=== PATIENT | female | born 1985 | race Caucasian/White ===

== ENCOUNTER 2017-05-06 16:11 | Emergency (ER) | payer SELFPAY ==
[2017-05-06] MEDS ORDERED: ONDANSETRON *ODT* 4 MG TABLET ONE (16:23)
[2017-05-06] MEDS ORDERED: SODIUM CHLORIDE 1,000 ML IV STA (16:28)
[2017-05-06] MEDS ORDERED: morphine SULFATE 4 MG/ML VIAL IVPUSH ONE (16:28)
[2017-05-06 16:32] VITALS: BMI 20.9
[2017-05-06] MEDS ORDERED: ONDANSETRON *ODT* 4 MG TABLET SL ONE (16:36)
[2017-05-06] MEDS ORDERED: ONDANSETRON 4 MG/2 ML VIAL IVPB ONE (16:45)
[2017-05-06] MEDS ORDERED: ONDANSETRON 4 MG/2 ML VIAL ONE (16:51)
[2017-05-06] MEDS ORDERED: morphine CARPU-JECT 10 MG/1 ML DISP.SYRIN ONE (16:51)
[2017-05-06 16:52] LABS: BASO % 0.5 % (0-2.0); EOS % 0.1 % (0-4.5); HEMATOCRIT 42.5 % (32.4-45.2); HEMOGLOBIN 14.5 GM/dL (10.7-15.3); LYMPH % 6.7 % (8-40); MCH 29.8 pg (25.7-33.7); MEAN CELL VOLUME 87.7 fl (80-96); MEAN PLT VOLUME 7.9 fl (7.5-11.1); MONO % 2.8 % (3.8-10.2); NEUT % 89.9 % (42.8-82.8); PLATELET COUNT 227 K/MM3 (134-434); RBC 4.85 M/mm3 (3.60-5.2); RDW 13.3 % (11.6-15.6); WHITE BLOOD COUNT 9.4 K/mm3 (4.0-10.0)
[2017-05-06] MEDS ORDERED: FAMOTIDINE IV 20 MG/12 ML VIAL IVPUSH ONE (16:54)
[2017-05-06] MEDS ORDERED: ACETAMINOPHEN 1000 MG/100 ML VIAL (NON FORMULARY) IVPB ONE (16:54)
--- NOTE | 2017-05-06 17:03 | PDOC ---
History of Present Illness - General History Source: Patient Exam Limitations: No Limitations - History of Present Illness Initial Comments: 05/06/17 18:04 The patient is a 32 year old female, with no significant past medical history, who presents to the emergency department with, one day of multiple episodes of emesis. The patient reports going out for [place] food yesterday. Today she reports nausea accompanied by 15 episodes of emesis. Secondary to her symptoms she reports abdominal discomfort. She reports to have just finished her menses. She denies recent fevers, chills, headache or dizziness. She denies recent diarrhea or constipation. She denies recent dysuria, frequency, urgency or hematuria. She denies recent chest pain or shortness of breath. Allergies: NKA Past surgical history: None reported. <Holley Her - Last Filed: 05/06/17 19:13> - General History Source: Patient Exam Limitations: No Limitations <Raf Vega - Last Filed: 05/06/17 19:16> <Cindy Casiano - Last Filed: 05/07/17 04:14> - General Chief Complaint: Nausea/Vomiting Stated Complaint: Nausea/Vomiting Time Seen by Provider: 05/06/17 16:25 Past History <Holley Her - Last Filed: 05/06/17 19:13> - Past Medical History COPD: No Other medical history: denies - Suicide/Smoking/Psychosocial Hx Smoking History: Never smoked Have you smoked in the past 12 months: No Information on smoking cessation initiated: No Hx Alcohol Use: No Drug/Substance Use Hx: Yes Substance Use Type: Marijuana <Raf Vega - Last Filed: 05/06/17 19:16> <Cindy Casiano - Last Filed: 05/07/17 04:14> - Past Medical History Allergies/Adverse Reactions: Allergies Allergy/AdvReac Type Severity Reaction Status Date / Time No Known Allergies Allergy Verified 05/06/17 16:35 Home Medications: Ambulatory Orders Ondansetron HCl [Zofran] 4 mg PO TID #15 tablet 05/06/17 Review of Systems - Review of Systems Able to Perform ROS?: Yes Comments:: 05/06/17 18:05 GENERAL/CONSTITUTIONAL: No fever or chills. No weakness. HEAD, EYES, EARS, NOSE AND THROAT: No change in vision. No ear pain or discharge. No sore throat. CARDIOVASCULAR: No chest pain or shortness of breath. RESPIRATORY: No cough, wheezing, or hemoptysis. GASTROINTESTINAL: +Nausea. +Emesis. +Abdominal discomfort. No diarrhea or constipation. GENITOURINARY: No dysuria, frequency, or change in urination. MUSCULOSKELETAL: No joint or muscle swelling or pain. No neck or back pain. SKIN: No rash NEUROLOGIC: No headache, vertigo, loss of consciousness, or change in strength/ sensation. ENDOCRINE: No increased thirst. No abnormal weight change. HEMATOLOGIC/LYMPHATIC: No anemia, easy bleeding, or history of blood clots. ALLERGIC/IMMUNOLOGIC: No hives or skin allergy. All Other Systems: Reviewed and Negative <Holley Her - Last Filed: 05/06/17 19:13> *Physical Exam - Vital Signs Last Vital Signs Temp Pulse Resp BP Pulse Ox 97.6 F 80 22 128/80 100 05/06/17 16:21 05/06/17 16:21 05/06/17 16:21 05/06/17 16:21 05/06/17 16:21 - Physical Exam Comments: 05/06/17 18:06 GENERAL: +Uncomfortable appearing. Awake, alert, and fully oriented HEAD: No signs of trauma EYES: PERRLA, EOMI, sclera anicteric, conjunctiva clear ENT: Auricles normal inspection, hearing grossly normal, nares patent, oropharynx clear without exudates. Moist mucosa NECK: Normal ROM, supple, no lymphadenopathy, JVD, or masses LUNGS: Breath sounds equal, clear to auscultation bilaterally. No wheezes, and no crackles HEART: Regular rate and rhythm, normal S1 and S2, no murmurs, rubs or gallops ABDOMEN: +Diffuse abdominal tenderness. No CVA tenderness. Soft, normoactive bowel sounds. No guarding, no rebound. No masses EXTREMITIES: Normal range of motion, no edema. No clubbing or cyanosis. No cords, erythema, or tenderness NEUROLOGICAL: Cranial nerves II through XII grossly intact. Normal speech, normal gait SKIN: Warm, Dry, normal turgor, no rashes or lesions noted. <Holley Her - Last Filed: 05/06/17 19:13> - Vital Signs Last Vital Signs Temp Pulse Resp BP Pulse Ox 97.6 F 80 22 128/80 100 05/06/17 16:21 05/06/17 16:21 05/06/17 16:21 05/06/17 16:21 05/06/17 16:21 <Raf Vega - Last Filed: 05/06/17 19:16> - Vital Signs Last Vital Signs Temp Pulse Resp BP Pulse Ox 98.1 F 89 18 102/66 98 05/06/17 19:29 05/06/17 19:29 05/06/17 19:29 05/06/17 19:29 05/06/17 19:29 <Cindy Casiano - Last Filed: 05/07/17 04:14> ED Treatment Course - LABORATORY CBC & Chemistry Diagram: 05/06/17 16:46 05/06/17 16:46 - ADDITIONAL ORDERS Additional order review: Laboratory Results 05/06/17 05/06/17 16:46 16:46 Sodium 141 Potassium 3.4 L Chloride 107 Carbon Dioxide 21 Anion Gap 13 BUN 12 Creatinine 0.9 Creat Clearance w eGFR > 60 Random Glucose 100 Calcium 8.9 Total Bilirubin 0.8 AST 14 L ALT 21 Alkaline Phosphatase 46 Total Protein 7.9 Albumin 4.5 Lipase 112 Serum , Qual Negative 05/06/17 16:46 RBC 4.85 MCV 87.7 MCHC 34.0 RDW 13.3 MPV 7.9 Neutrophils % 89.9 H Lymphocytes % 6.7 L Monocytes % 2.8 L Eosinophils % 0.1 Basophils % 0.5 - Medications Given in the ED: ED Medications Discontinued Medications Generic Name Dose Route Start Last Admin Trade Name José PRN Reason Stop Dose Admin Acetaminophen 1,000 mg 05/06/17 16:54 05/06/17 17:32 Ofirmev Injection - IVPB 05/06/17 16:55 Not Given ONCE ONE Hydromorphone HCl 0.5 mg 05/06/17 17:06 05/06/17 17:13 Dilaudid Injection - IVPB 05/06/17 17:07 0.5 mg ONCE ONE Administration Sodium Chloride 1,000 mls @ 1,000 mls/hr 05/06/17 16:28 05/06/17 16:41 Normal Saline - IV 05/06/17 17:27 1,000 mls/hr ASDIR STA Administration Famotidine 20 mg in 12 mls @ 144 mls/hr 05/06/17 16:54 05/06/17 17:26 Pepcid 20 Mg/12 Ml Push IVPUSH 05/06/17 16:58 144 mls/hr ONCE ONE Administration Morphine Sulfate 4 mg 05/06/17 16:28 05/06/17 17:05 Morphine Sulfate IVPUSH 05/06/17 16:29 4 mg ONCE ONE Administration Ondansetron HCl 4 mg 05/06/17 16:45 05/06/17 17:13 Zofran Injection IVPB 05/06/17 16:46 4 mg ONCE ONE Administration Ondansetron HCl 8 mg 05/06/17 16:36 05/06/17 16:42 Zofran Odt - SL 05/06/17 16:37 4 mg ONCE ONE Administration <Holley Her - Last Filed: 05/06/17 19:13> - LABORATORY CBC & Chemistry Diagram: 05/06/17 16:46 05/06/17 16:46 - ADDITIONAL ORDERS Additional order review: 05/06/17 16:46 RBC 4.85 MCV 87.7 MCHC 34.0 RDW 13.3 MPV 7.9 Neutrophils % 89.9 H Lymphocytes % 6.7 L Monocytes % 2.8 L Eosinophils % 0.1 Basophils % 0.5 - Medications Given in the ED: ED Medications Discontinued Medications Generic Name Dose Route Start Last Admin Trade Name Freq PRN Reason Stop Dose Admin Ondansetron HCl 8 mg 05/06/17 16:36 05/06/17 16:42 Zofran Odt - SL 05/06/17 16:37 4 mg ONCE ONE Administration <Raf Vega - Last Filed: 05/06/17 19:16> - LABORATORY CBC & Chemistry Diagram: 05/06/17 16:46 05/06/17 16:46 - ADDITIONAL ORDERS Additional order review: Laboratory Results 05/06/17 05/06/17 05/06/17 16:46 16:46 16:46 Sodium 141 Potassium 3.4 L Chloride 107 Carbon Dioxide 21 Anion Gap 13 BUN 12 Creatinine 0.9 Creat Clearance w eGFR > 60 Random Glucose 100 Calcium 8.9 Total Bilirubin 0.8 AST 14 L ALT 21 Alkaline Phosphatase 46 Total Protein 7.9 Albumin 4.5 Lipase 112 Serum , Qual Urine Color Ltyellow Urine Appearance Clear Urine pH 8.0 Ur Specific Thorpe 1.036 H Urine Protein Negative Urine Glucose (UA) Negative Urine Ketones 2+ H Urine Blood 2+ H Urine Nitrite Negative Urine Bilirubin Negative Urine Urobilinogen Negative Ur Leukocyte Esterase Negative Urine WBC (Auto) <1 Urine RBC (Auto) 2 Ur Epithelial Cells Rare Urine Mucus Rare Opiates Screen Positive Methadone Screen Negative Barbiturate Screen Negative Phencyclidine Screen Negative Ur Amphetamines Screen Negative MDMA (Ecstasy) Screen Negative Benzodiazepines Screen Negative Cocaine Screen Negative U Marijuana (THC) Screen Positive 05/06/17 16:46 Sodium Potassium Chloride Carbon Dioxide Anion Gap BUN Creatinine Creat Clearance w eGFR Random Glucose Calcium Total Bilirubin AST ALT Alkaline Phosphatase Total Protein Albumin Lipase Serum , Qual Negative Urine Color Urine Appearance Urine pH Ur Specific [place] Urine Protein Urine Glucose (UA) Urine Ketones Urine Blood Urine Nitrite Urine Bilirubin Urine Urobilinogen Ur Leukocyte Esterase Urine WBC (Auto) Urine RBC (Auto) Ur Epithelial Cells Urine Mucus Opiates Screen Methadone Screen Barbiturate Screen Phencyclidine Screen Ur Amphetamines Screen MDMA (Ecstasy) Screen Benzodiazepines Screen Cocaine Screen U Marijuana (THC) Screen 05/06/17 16:46 RBC 4.85 MCV 87.7 MCHC 34.0 RDW 13.3 MPV 7.9 Neutrophils % 89.9 H Lymphocytes % 6.7 L Monocytes % 2.8 L Eosinophils % 0.1 Basophils % 0.5 - Medications Given in the ED: ED Medications Discontinued Medications Generic Name Dose Route Start Last Admin Trade Name Karq PRN Reason Stop Dose Admin Acetaminophen 1,000 mg 05/06/17 16:54 05/06/17 17:32 Ofirmev Injection - IVPB 05/06/17 16:55 Not Given ONCE ONE Hydromorphone HCl 0.5 mg 05/06/17 17:06 05/06/17 17:13 Dilaudid Injection - IVPB 05/06/17 17:07 0.5 mg ONCE ONE Administration Sodium Chloride 1,000 mls @ 1,000 mls/hr 05/06/17 16:28 05/06/17 16:41 Normal Saline - IV 05/06/17 17:27 1,000 mls/hr ASDIR STA Administration Famotidine 20 mg in 12 mls @ 144 mls/hr 05/06/17 16:54 05/06/17 17:26 Pepcid 20 Mg/12 Ml Push IVPUSH 05/06/17 16:58 144 mls/hr ONCE ONE Administration Lorazepam 1 mg 05/06/17 18:54 05/06/17 19:12 Ativan Injection - IVPUSH 05/06/17 18:55 1 mg ONCE ONE Administration Magnesium Sulfate 2 gm 05/06/17 19:33 05/06/17 20:15 Magnesium Sulfate IVPB 05/06/17 19:34 2 gm ONCE ONE Administration Morphine Sulfate 4 mg 05/06/17 16:28 05/06/17 17:05 Morphine Sulfate IVPUSH 05/06/17 16:29 4 mg ONCE ONE Administration Ondansetron HCl 4 mg 05/06/17 16:45 05/06/17 17:13 Zofran Injection IVPB 05/06/17 16:46 4 mg ONCE ONE Administration Ondansetron HCl 8 mg 05/06/17 16:36 05/06/17 16:42 Zofran Odt - SL 05/06/17 16:37 4 mg ONCE ONE Administration Potassium Chloride 40 meq 05/06/17 19:33 05/06/17 19:43 K-Dur - PO 05/06/17 19:34 40 meq ONCE ONE Administration <Cindy Casiano - Last Filed: 05/07/17 04:14> Medical Decision Making - Medical Decision Making 05/06/17 16:56 A portion of this note was documented by scribe services under my direction. I have reviewed the details of the note, within reason, and agree with the documentation with the following case summary and management plan written by me. Patient treated in the ED. Nursing notes are reviewed and incorporated into the medical decision-making. Vital signs reviewed. Peripheral IV access obtained by the nurse, laboratory studies are drawn and sent, reviewed and interpreted by myself. Vital Signs Temp Pulse Resp BP Pulse Ox 97.6 F 80 22 128/80 100 05/06/17 16:21 05/06/17 16:21 05/06/17 16:21 05/06/17 16:21 05/06/17 16:21 32-year-old female patient with no past medical history presents with one day of persistent vomiting. Patient went out yesterday and had some [place] food. Today, has had multiple episodes of vomiting and persistent nausea. Up to 15 times. Patient reports severe nausea and some abdominal discomfort. Patient recently had her last pressure. But denies vaginal bleeding. Denies dysuria, diarrhea. Denies prior surgical history. The patient here is very much nauseous and vomiting with abdominal discomfort. Differential includes appendicitis, colitis, renal colic. We'll obtain labs, urinalysis and a CAT scan the abdomen pelvis and reassess. 05/06/17 19:16 CBC, BMP 05/06/17 16:46 05/06/17 16:46 CMP Sodium 141 mmol/L (136-145) 05/06/17 16:46 Potassium 3.4 mmol/L (3.5-5.1) L 05/06/17 16:46 Chloride 107 mmol/L (98-107) 05/06/17 16:46 Carbon Dioxide 21 mmol/L (21-32) 05/06/17 16:46 Anion Gap 13 (8-16) 05/06/17 16:46 BUN 12 mg/dL (7-18) 05/06/17 16:46 Creatinine 0.9 mg/dL (0.55-1.02) 05/06/17 16:46 Creat Clearance w eGFR > 60 (>60) 05/06/17 16:46 Random Glucose 100 mg/dL (74-106) 05/06/17 16:46 Calcium 8.9 mg/dL (8.5-10.1) 05/06/17 16:46 Total Bilirubin 0.8 mg/dL (0.2-1.0) 05/06/17 16:46 AST 14 U/L (15-37) L 05/06/17 16:46 ALT 21 U/L (12-78) 05/06/17 16:46 Alkaline Phosphatase 46 U/L (45-117) 05/06/17 16:46 Total Protein 7.9 g/dl (6.4-8.2) 05/06/17 16:46 Albumin 4.5 g/dl (3.4-5.0) 05/06/17 16:46 Lipase 112 U/L (73-393) 05/06/17 16:46 Serum , Qual Negative 05/06/17 16:46 CT scan of abdomen and pelvis pending UA, utox pending. Pt did admit that she smokes marijuana daily. Cyclical vomiting within the differential. Will trial ativan. If CT and UA unremarkable, and pt is feeling better, I suspect that this may be cyclical vomiting. Case signed out to oncoming ED attending Dr. Casiano. <Raf Vega - Last Filed: 05/06/17 19:16> - Medical Decision Making 05/06/17 21:08 Patient Name: RADHA RODRÍGUEZ THIS IS A PRELIMINARY REPORT FROM [facility] EXAM: CT abdomen and pelvis with contrast IMAGES:[id number] DATE OF EXAM: 2017-05-06 17:56:15 REASON FOR EXAM: Diffuse abdomen pain with nausea and vomiting COMPARISON: None Findings: The liver, gallbladder, pancreas, and adrenal glands, and spleen are unremarkable. No renal or ureteral calculi. No AAA. Most of the colon is decompressed. No evidence for diverticulitis, appendicitis , small bowel obstruction, or free air. Trace pelvic fluid. THIS DOCUMENT HAS BEEN ELECTRONICALLY SIGNED 05/07/17 04:12 Pt is feeling vastly improved. She has normal labs, and her imaging studies are normal. 05/07/17 04:13 Pt was hydrated, as she had 2+ ketones. <Cindy Casiano - Last Filed: 05/07/17 04:14> *DC/Admit/Observation/Transfer - Attestations Scribe Attestion: 05/06/17 18:06 Documentation prepared by Holley Her, acting as certified medical coder for Raf Vega MD. <Holley Her - Last Filed: 05/06/17 19:13> <Raf Vega - Last Filed: 05/06/17 19:16> - Discharge Dispostion Admit: No <Cindy Casiano - Last Filed: 05/07/17 04:14> Diagnosis at time of Disposition: Viral gastroenteritis - Discharge Dispostion Disposition: HOME Condition at time of disposition: Stable - Prescriptions Prescriptions: Ondansetron HCl [Zofran] 4 mg PO TID #15 tablet - Patient Instructions Printed Discharge Instructions: Viral Gastroenteritis
[2017-05-06] MEDS ORDERED: HYDROmorphone HCL CARPU-JECT 1 MG/1 ML DISP.SYRIN IVPB ONE (17:06)
[2017-05-06] MEDS ORDERED: HYDROmorphone HCL CARPU-JECT 1 MG/1 ML DISP.SYRIN ONE (17:09)
[2017-05-06] MEDS ORDERED: METOCLOPRAMIDE HCL INJECTION 10 MG/2 ML VIAL ONE (17:14)
[2017-05-06] MEDS ORDERED: FAMOTIDINE 20 MG/50 ML IVPB 20 MG/50 ML MG IVPB ONE (17:14)
[2017-05-06 17:28] LABS: ALBUMIN 4.5 g/dl (3.4-5.0); ANION GAP 13 (8-16); BILIRUBIN,TOTAL 0.8 mg/dL (0.2-1.0); BLOOD UREA NITROGEN 12 mg/dL (7-18); CALCIUM 8.9 mg/dL (8.5-10.1); CHLORIDE 107 mmol/L (98-107); CO2 21 mmol/L (21-32); CREATININE 0.9 mg/dL (0.55-1.02); GLUCOSE,RANDOM 100 mg/dL (74-106); LIPASE 112 U/L (73-393); POTASSIUM 3.4 mmol/L (3.5-5.1); SGOT/AST 14 U/L (15-37); SGPT/ALT 21 U/L (12-78); SODIUM 141 mmol/L (136-145); TOT PROT 7.9 g/dl (6.4-8.2)
[2017-05-06 17:29] LABS: ALK PHOS 46 U/L (45-117)
[2017-05-06] MEDS ORDERED: LORazepam 2 MG/ML SDV VIAL ONE (19:01)
[2017-05-06 19:07] LABS: URINE APPEARANCE CLEAR; URINE BILIRUBIN NEGATIVE (NEGATIVE); URINE BLOOD 2+ (NEGATIVE); URINE COLOR LTYELLOW; URINE GLUCOSE (UA) NEGATIVE (NEGATIVE); URINE KETONE 2+ (NEGATIVE); URINE LEUK ESTERASE NEGATIVE (NEGATIVE); URINE NITRITE NEGATIVE (NEGATIVE); URINE PROTEIN NEGATIVE (NEGATIVE); URINE UROBILINOGEN NEGATIVE mg/dL (0.2-1.0)
[2017-05-06 19:10] LABS: EPI CELLS RARE /HPF (FEW); URINE MUCUS RARE
[2017-05-06 19:19] LABS: COCAINE, UR NEGATIVE ng/ml (CUTOFF=300); METHADONE, UR NEGATIVE ng/ml (CUTOFF=300); PHENCYCLIDINE,URINE NEGATIVE ng/ml (CUTOFF=25); URINE AMPHETAMINES NEGATIVE ng/ml (CUTOFF=500); URINE BARBITURATES NEGATIVE ng/ml (CUTOFF=200); URINE BENZODIAZEPINES NEGATIVE ng/ml (CUTOFF=200)
[2017-05-06 19:21] LABS: OPIATES, URI POSITIVE ng/ml (CUTOFF=300)
[2017-05-06] MEDS ORDERED: MAGNESIUM SULF 50% (8.12 MEQ/2 ML-1 GM VIAL) IVPB ONE (19:33)
[2017-05-06] MEDS ORDERED: POTASSIUM CHLORIDE TABS 20 MEQ TABLET.ER (FP) PO ONE ×2 (19:33→19:39)
[2017-05-06] MEDS ORDERED: MAGNESIUM SULF 50% (8.12 MEQ/2 ML-1 GM VIAL) ONE (20:01)
[2017-05-06 21:43] VITALS: BP 111/82; PULSE 90; TEMP 97.4
== END 2017-05-06 22:32 | disposition home or self-care (01) ==
LOC: JER 16:11
PROC: 3E033NZ Introduction of Analgesics, Hypnotics, Sedatives into Peripheral Vein, Percutaneous Approach (ICD-10-PCS; principal; 2017-05-06)
PROC: 3E033GC Introduction of Other Therapeutic Substance into Peripheral Vein, Percutaneous Approach (ICD-10-PCS; 2017-05-06)
PROC: 3E033GC Introduction of Other Therapeutic Substance into Peripheral Vein, Percutaneous Approach (ICD-10-PCS; 2017-05-06)
PROC: 3E033NZ Introduction of Analgesics, Hypnotics, Sedatives into Peripheral Vein, Percutaneous Approach (ICD-10-PCS; 2017-05-06)
PROC: 3E033NZ Introduction of Analgesics, Hypnotics, Sedatives into Peripheral Vein, Percutaneous Approach (ICD-10-PCS; 2017-05-06)
DX: A08.4 Viral intestinal infection, unspecified (principal); B97.89 Other viral agents as the cause of diseases classified elsewhere
CPT/HCPCS: 36415; 74177-TC; 80053; 80307; 81003; 81015; 83690; 84703; 85025; 87086; 99283-25